=== PATIENT | male | born 1970 | race Caucasian/White ===

== ENCOUNTER → 2023-05-20 | Outpatient (CLI) | payer OTHER | END | disposition home or self-care (01) | LOC: RAH 12:17 | PROVIDERS: ATTEND Internal Medicine | DX: M19.042 Primary osteoarthritis, left hand (principal); M54.31 Sciatica, right side; M79.642 Pain in left hand; M47.27 Other spondylosis with radiculopathy, lumbosacral region | CPT/HCPCS: 72110; 73130 ==